=== PATIENT | male | born 1990 | race African-American/Black ===

== ENCOUNTER 2016-09-15 16:04 | Observation (INO) | payer OTHER ==
[2016-09-15] MEDS ORDERED: BABY ASPIRIN 81 MG CHEW PO ONE (16:27)
[2016-09-15] MEDS ORDERED: Sodium Chloride 0.9% 1000 ML 1,000 ML IV STA (16:27)
[2016-09-15] MEDS ORDERED: Ativan 2 MG/1 ML VIAL IV ONE ×2 (16:28→17:18)
[2016-09-15 16:35] LABS: BASOPHIL % 0.5 % (0.0-0.4); Eosinophil % 0.6 % (0.00-5.0); Granulocytes % 72.2 % (36.0-66.0); Lymphocytes % 18.8 % (24.0-44.0); Mean Cell Volume 84.1 fl (78-100); Mean Corpuscular Hemoglobin 27.9 pg (26-32); Mean Platelet Volume 11.8 fl (6-9.5); Monocytes % 7.9 % (0.0-12.0); Platelet Count 220 K/mm3 (150-450); Red Blood Count 5.48 M/mm3 (4.1-5.6); Red Cell Distribution Width 14.3 % (11.5-14.0); White Blood Count 8.5 K/mm3 (4.0-10.5)
[2016-09-15] MEDS ORDERED: Sodium Chloride 0.9% 1000 ML 1,000 ML ONE (16:37)
[2016-09-15] MEDS ORDERED: BABY ASPIRIN 81 MG CHEW ONE (16:37)
[2016-09-15] MEDS ORDERED: Ativan 2 MG/1 ML VIAL ONE ×2 (16:37→17:19)
[2016-09-15 16:51] LABS: ALKALINE PHOSPHATASE 63 U/L (46-116); ANION GAP 19.5 MEQ/L (5-15); BILIRUBIN,TOTAL 1.7 mg/dL (0.2-1.0); BLOOD UREA NITROGEN 17 mg/dL (9-20); CHLORIDE 99 mEq/L (98-107); Glucose 88 MG/DL (70-110); Potassium 3.7 mEq/L (3.5-5.1); SGOT/AST 18 U/L (15-37); SGPT/ALT 23 U/L (12-78); SODIUM 138 mEq/L (136-145); Total Protein 9.5 gm/dL (6.4-8.2)
--- NOTE | 2016-09-15 17:01 | ERPHSYRPT ---
- History of Present Illness Time Seen by Provider: 09/15/16 16:15 Historian: patient Patient Subjective Stated Complaint: pt states after smoking methampetamines last pm he began having chest pain and increased hert rate. pt states he has become sob at times. pt also c/o a headache. Triage Nursing Assessment: pt pink, warm, dry. lung sounds clear and equal. pt afebrile. Physician History: CC: chest pain Hx: 26 y/o man smoked meth last night. He then had chest pain and some headache. No hx of heart trouble in the past. Pain is constant. He was scared so came to ER. Not short of breath. No fever or chills. No cough. Timing/Duration: yesterday Location: substernal Severity of Pain-Max: moderate Severity of Pain-Current: moderate Nitro Today/Relief: no nitro taken today Aspirin Treatment Today: provided by ED Allergies/Adverse Reactions: No Known Drug Allergies Allergy (Unverified 09/15/16 16:16) Home Medications: No Reportable Medications [No Reported Medications] 09/15/16 [History] Hx Tetanus, Diphtheria Vaccination/Date Given: Yes (unknown) Hx Influenza Vaccination/Date Given: No Hx Pneumococcal Vaccination/Date Given: No Immunizations Up to Date: Yes - Review of Systems Constitutional: Malaise, No Fever, No Chills Eyes: No Symptoms Ears, Nose, & Throat: No Symptoms Respiratory: No Cough, No Dyspnea Cardiac: Chest Pain, No Edema, No Palpitations, No Syncope Abdominal/Gastrointestinal: No Abdominal Pain, No Nausea, No Vomiting, No Diarrhea Genitourinary Symptoms: No Symptoms Musculoskeletal: No Symptoms Skin: No Rash Neurological: Headache, No Dizziness, No Focal Weakness, No Parasthesia All Other Systems: Reviewed and Negative - Past Medical History Pertinent Past Medical History: No Neurological History: No Pertinent History ENT History: No Pertinent History Cardiac History: No Pertinent History Respiratory History: No Pertinent History - Past Surgical History Past Surgical History: No - Social History Smoking Status: Light tobacco smoker How long have you smoked: 10 Exposure to second hand smoke: No Drug Use: methamphetamines Patient Lives Alone: No - Nursing Vital Signs Temperature: 99.1 F Temperature Source: Oral Pulse Rate: 120 Respiratory Rate: 20 Blood Pressure: 159/103 Pain Intensity: 2 - Physical Exam General Appearance: alert Eye Exam: PERRL/EOMI Ears, Nose, Throat Exam: normal ENT inspection, moist mucous membranes Neck Exam: normal inspection, non-tender, supple Respiratory Exam: normal breath sounds, lungs clear Cardiovascular Exam: regular rate/rhythm, No murmur, No friction rub Gastrointestinal/Abdomen Exam: soft, No tenderness, No distention Extremity Exam: normal inspection, normal range of motion Neurologic Exam: alert, oriented x 3, cooperative, sensation nml, No motor deficits Skin Exam: warm, dry, No rash SpO2 Interpretation: normal SpO2: 98 Oxygen Delivery: Room Air - Course Nursing assessment & vital signs reviewed: Yes EKG Interpreted by Me: RATE (117), Sinus Rhythm, NORMAL AXIS, NORMAL INTERVALS ( QTc 441), Non-specific ST Changes - Radiology Exams cxr X-ray Interpretation: Reviewed by me, Negative Ordered Tests: Active Orders 24 hr Category Date Time Status Glass Belt Sander STAT Care 09/15/16 16:27 Active Clean Catch Urine Specimen STAT Care 09/15/16 17:44 Ordered EKG-ER Only STAT Care 09/15/16 16:27 Active IV Insertion STAT Care 09/15/16 16:27 Active Pulse Oximetry (ED) STAT Care 09/15/16 16:27 Active Regular Diet Diet 09/16/16 Breakfast Active CHEST 1 VIEW (PORTABLE) Stat Exams 09/15/16 16:27 Taken CBC W DIFF Stat Lab 09/15/16 16:30 Completed CMP Stat Lab 09/15/16 16:30 Completed TROPONIN Q3H Lab 09/15/16 16:32 Completed TROPONIN Q3H Lab 09/15/16 19:30 Ordered TROPONIN Q3H Lab 09/15/16 22:30 Ordered TROPONIN Q3H Lab 09/16/16 01:30 Ordered TROPONIN Q3H Lab 09/16/16 04:30 Ordered UA Stat Lab 09/15/16 17:45 Ordered Urine Triage Profile Stat Lab 09/15/16 17:45 Ordered Medication Summary Discontinued Medications Generic Name Dose Route Start Last Admin Trade Name Freq PRN Reason Stop Dose Admin Acetaminophen 650 mg 09/15/16 17:19 09/15/16 17:21 Tylenol 325 Mg PO 09/15/16 17:20 650 mg STAT ONE Administration Acetaminophen Confirm 09/15/16 17:20 Tylenol 325 Mg Administered 09/15/16 17:21 Dose 650 mg .ROUTE .STK-MED ONE Aspirin 162 mg 09/15/16 16:27 09/15/16 16:42 Baby Aspirin 81 Mg Chew PO 09/15/16 16:28 162 mg STAT ONE Administration Aspirin Confirm 09/15/16 16:37 Baby Aspirin 81 Mg Chew Administered 09/15/16 16:38 Dose 162 mg .ROUTE .STK-MED ONE Sodium Chloride 1,000 mls @ 999 mls/hr 09/15/16 16:27 09/15/16 16:42 Sodium Chloride 0.9% 1000 Ml IV 09/15/16 17:27 999 mls/hr .Q1H1M STA Administration Sodium Chloride Confirm 09/15/16 16:37 Sodium Chloride 0.9% 1000 Ml Administered 09/15/16 16:38 Dose 1,000 mls @ ud .ROUTE .STK-MED ONE Lorazepam 1 mg 09/15/16 16:28 09/15/16 16:43 Ativan 2 Mg/1 Ml Vial IV 09/15/16 16:29 1 mg STAT ONE Administration Lorazepam Confirm 09/15/16 16:37 Ativan 2 Mg/1 Ml Vial Administered 09/15/16 16:38 Dose 2 mg .ROUTE .STK-MED ONE Lorazepam 1 mg 09/15/16 17:18 09/15/16 17:21 Ativan 2 Mg/1 Ml Vial IV 09/15/16 17:19 1 mg STAT ONE Administration Lorazepam Confirm 09/15/16 17:19 Ativan 2 Mg/1 Ml Vial Administered 09/15/16 17:20 Dose 2 mg .ROUTE .STK-MED ONE Lab/Rad Data: Laboratory Result Diagrams 09/15/16 16:30 09/15/16 16:30 Laboratory Results 09/15/16 09/15/16 09/15/16 Range/Units 16:32 16:30 16:30 WBC 8.5 (4.0-10.5) K/mm3 RBC 5.48 (4.1-5.6) M/mm3 Hgb 15.3 (12.5-18.0) gm/dl Hct 46.1 (42-50) % MCV 84.1 (78-100) fl MCH 27.9 (26-32) pg MCHC 33.2 (32-36) g/dl RDW 14.3 H (11.5-14.0) % Plt Count 220 (150-450) K/mm3 MPV 11.8 H (6-9.5) fl Gran % 72.2 H (36.0-66.0) % Lymphocytes % 18.8 L (24.0-44.0) % Monocytes % 7.9 (0.0-12.0) % Eosinophils % 0.6 (0.00-5.0) % Basophils % 0.5 (0.0-0.4) % Basophils # 0.04 (0-0.4) Sodium 138 (136-145) mEq/L Potassium 3.7 (3.5-5.1) mEq/L Chloride 99 (98-107) mEq/L Carbon Dioxide 23.0 (21-32) mEq/L Anion Gap 19.5 H (5-15) MEQ/L BUN 17 (9-20) mg/dL Creatinine 1.01 (0.55-1.30) mg/dl Estimated GFR > 60 ML/MIN Glucose 88 (70-110) MG/DL Calcium 10.4 H (8.5-10.1) mg/dL Total Bilirubin 1.7 H (0.2-1.0) mg/dL AST 18 (15-37) U/L ALT 23 (12-78) U/L Alkaline Phosphatase 63 (46-116) U/L Troponin I 0.050 (0.000-0.056) ng/ml Serum Total Protein 9.5 H (6.4-8.2) gm/dL Albumin 5.0 (3.4-5.0) g/dL - Progress Progress Note: 09/15/16 17:45 Chest pain has improved with ativan. Troponin upper normal and he is still tachycardic. Paged Dr Reid for Jd for observation (oc). Will see patient in: hospital (observation) Counseled pt/family regarding: lab results, diagnosis, need for follow-up, rad results - Departure Time of Disposition: 17:53 Departure Disposition: Observation Clinical Impression: Chest pain, rule out acute myocardial infarction, Methamphetamine abuse Condition: Fair Critical Care Time: No Referrals: DOCTOR,NO FAMILY [Primary Care Provider] -
[2016-09-15] MEDS ORDERED: TYLENOL 325 MG PO ONE (17:19)
[2016-09-15] MEDS ORDERED: TYLENOL 325 MG ONE (17:20)
[2016-09-15 18:03] LABS: COMPLETE URINE MICROSCOPIC? NO; Collection Type CLEAN CATCH; Ph 5.5 (5-6)
[2016-09-15] MEDS ORDERED: MILK OF MAGNESIA 30 ML PO PRN (18:33)
[2016-09-15] MEDS ORDERED: Zofran 4 MG/2 ML VIAL IV PRN (18:33)
[2016-09-15] MEDS ORDERED: Senokot-S Tablet PO PRN (18:33)
[2016-09-15] MEDS ORDERED: TYLENOL 325 MG PO PRN (18:33)
[2016-09-15] MEDS ORDERED: MAALOX ES 30 ML UNIT DOSE PO PRN (18:33)
[2016-09-15] MEDS: Dextrose 5%-Lr IV Solution 1000 ML 1,000 ML IV SCH (19:49)
--- NOTE | 2016-09-15 20:33 | XRAY ---
Indication: Chest pain. Comparison: February 17, 2009 Portable chest again demonstrates normal heart, lungs, and bony thorax.
[2016-09-16] MEDS: Dextrose 5%-Lr IV Solution 1000 ML 1,000 ML IV SCH ×2 (02:54→08:38)
[2016-09-16] MEDS ORDERED: BABY ASPIRIN 81 MG CHEW PO SCH (10:00)
[2016-09-16] MEDS ORDERED: Ecotrin 325 MG PO SCH (10:00)
--- NOTE | 2016-09-16 14:22 | HP ---
HISTORY OF PRESENT ILLNESS: History has been gathered from review of patient's chart and discussion with patient. Mr. Molina is a 26 y/o male with reportedly no past medical history except illicit drug use. He presented to Emergency Room yesterday with substernal chest pain, increased heart rate, headache, and dizziness. Symptoms have started reportedly after he had smoked methamphetamine the night before. Upon initial evaluation in Emergency Room, he was noted to have BP of 159/103, heart rate of 120, respiratory rate 20, temperature 99.1. He was treated with Tylenol 650 mg PO X 1, Tylenol 325 mg PO X 1, aspirin 162 mg PO X 1, Ativan 1 mg IV X 1, Ativan 2 mg IV X 1. Subsequently, he was admitted to medical floor for further monitoring and management. Prior to admission, patient's chest pain had improved with Ativan. Since admission, his course has been essentially, more or less, unremarkable. At the time of this evaluation, he is alert, awake, and comfortable. States his chest pain has nearly resolved. Complains of occasional dizziness when he tries to stand up. Denies any other complaints. PAST MEDICAL HISTORY: As noted above. Patient denies having any prior medical problems. Also, denies any prior history of any chest pain. PAST SURGICAL HISTORY: Noncontributory. FAMILY HISTORY: Noncontributory to current admission. SOCIAL HISTORY: Patient is an active smoker. Has smoked for 10 years. Also, uses methamphetamines. ALLERGIES: NKDA. CURRENT MEDICATIONS: Patient is on no home medications. REVIEW OF SYSTEMS: Complains of occasional headache and dizziness. History of chest pain. Denies increased shortness of breath. Denies cough. Denies fever. Complains of mild abdominal discomfort (states he ate too much for lunch a short while back). Denies nausea or vomiting. Denies constipation or diarrhea. Denies urinary complaints. PHYSICAL EXAMINATION: Young male lying comfortably in bed. Not in acute distress. VITAL SIGNS: BP 102/54, heart rate 84, respiratory rate 18, temperature 98.3, O2 saturations 97% on room air. HEENT: Normocephalic. No pallor or icterus noted. NECK: No JVD present. CVS: S1 and S2 present. RESPIRATORY: Breath sounds bilaterally diminished and clear to auscultation. ABDOMEN: Soft, nontender. NEURO: He is alert and oriented X 3. Evaluation of motor strength in bilateral upper and lower extremities reveals grossly intact motor strength. EXTREMITIES: Reveals no edema on bilateral lower extremities. LABORATORY DATA: Labs from yesterday showed unremarkable CBC. CMP was notable for total bilirubin of 1.7. Troponin has been 0.050, 0.052, 0.050, 0.047, and 0.045. Lipid profile is essentially unremarkable except HDL of 75. UA was essentially negative. Urine tox is positive for amphetamines and marijuana. Chest x-ray from 09/15/16 shows normal study. Initial EKG showed normal sinus rhythm at 117 beats/minute, QTC 440, nonspecific ST-T changes. A follow-up EKG showed sinus rhythm at 86 beats/minute, QTC interval of 433 milliseconds, nonspecific ST-T changes, ST segment elevation in lead 3. ASSESSMENT: 26 y/o male with impression: 1. CHEST PAIN. 2. ILLICIT DRUG USE (MARIJUANA/AMPHETAMINES, PER URINE TOX). 3. ELEVATED BP NOW RESOLVED. 4. ABNORMAL LIVER FUNCTION TESTS. PLAN: 1. Patient was admitted for further monitoring and management. Since admission, his elevated BP/tachycardia resolved after treatment Ativan. He remains hemodynamically stable. Troponins have remained negative so far. EKG has revealed nonspecific ST-T changes. Will obtain a follow-up EKG. Also, will obtain orthostatic BP readings. 2. Patient is agreeable for psychiatry evaluation. Will obtain telemental health consultation. 3. Will schedule stress test as an outpatient. Will start patient on baby aspirin. 4. Likely discharge home later today if work-up is negative and clinically improves. 5. Will obtain hepatitis profile. I have advised patient to obtain PCP [facility] and follow-up in 1 week. Compliance with diet and medications was stressed. He is otherwise to follow-up for outpatient testing as scheduled. Complete cessation of smoking, alcohol intake, and illicit drug use was stressed. I have advised patient to return to the Emergency Room [facility] if any new signs and symptoms or reappearance of previous signs and symptoms are noted. The patient's clinical condition, work-up results, and plan of management were discussed with him. He seems to be in understanding and agreement.
[2016-09-16 15:39] VITALS: BP 142/63; PULSE 89; O2SAT 95
[2016-09-16] MEDS ORDERED: FLUZONE QUAD 2016-2017 SYRINGE 36MO-64YO IM ONE (16:30)
[2016-09-16] MEDS ORDERED: PNEUMOVAX 23 IM ONE (16:30)
[2016-09-17 06:58] LABS: HEPATITIS B VIRUS CORE TOT AB Non-Reactive (Non-Reactive)
[2016-09-17] MEDS ORDERED: ECOTRIN 81 MG PO SCH (10:00)
--- NOTE | 2016-09-17 10:23 | ECHO ---
Transthoracic echocardiographic examination and color Doppler was done on 09/16/2016. INDICATION: Chest pain. IMPRESSION: 1) NO REGIONAL WALL MOTION ABNORMALITY. ESTIMATED GLOBAL LEFT VENTRICULAR EJECTION FRACTION AROUND 60%. 2) TRACE TRICUSPID REGURGITATION. RIGHT VENTRICULAR SYSTOLIC PRESSURE OF 28 MM OF MERCURY. The left ventricle is visualized and demonstrated adequate motion of all the segments. Estimated global left ventricular ejection fraction around 60%. The left ventricular thickness is normal. The mitral valve is seen and this opens adequately. No significant mitral regurgitation is seen. Left atrium is normal. The aortic valve opens adequately. Right side chambers are normal. There is trace tricuspid regurgitation. Right ventricular systolic pressure of 28 mm of Mercury.
--- NOTE | 2016-09-17 11:01 | DS ---
DISCHARGE DIAGNOSES: 1) CHEST PAIN, RESOLVED. 2) ILLICIT DRUG USE (MARIJUANA/AMPHETAMINE PER URINE TOX). 3) ELEVATED BLOOD PRESSURE, RESOLVED. 4) ABNORMAL LIVER FUNCTION TEST. HOSPITAL COURSE: Donato Molina is a 26 year-old male with past medical history of illicit drug use. He was admitted on 09/15/2016 with reported chest pain, headache, dizziness which had started after he had smoked methamphetamine the night before. Upon presentation he was noted to be hypertensive, tachycardic. Please refer to H&P for details. Lab work up was essentially notable for bilirubin 1.7. Troponins have remained negative. Initial EKG showed tachycardia, nonspecific ST-T changes. Follow up EKG showed sinus rhythm, nonspecific ST-T changes and elevation in lead III. Follow up EKG showed sinus rhythm, no acute changes per preliminary report. Urine tox was positive for amphetamines and marijuana. During his further course he underwent additional work up including 2D echo which showed no regional wall motion abnormality, ejection fraction 60%, trace tricuspid regurgitation, right ventricular systolic pressure of 28 mm of Mercury. His chest pain had resolved. He was placed on daily aspirin and stress test as outpatient was scheduled. In the meantime patient and family were agreeable with evaluation by psychiatry for his substance abuse problem. The patient was evaluated by [facility] via telemental exam and was accepted for admission. The patient was transferred to their facility yesterday evening in stable condition. Please refer to discharge medication list from 09/16/2016 for details of medications on discharge. I have advised the patient that once he leaves he needs to find himself a primary care physician. Also, complete cessation of smoking, alcohol intake and illicit drug use was stressed. The patient's clinical condition, work-up results and plan of management as well as transfer were discussed with patient and family. They seem to be in understanding and agreement of the plan. Discussed with patient's nurse. Please refer to the patient's chart, labs, diagnostic work up results and consult note for details.
== END 2016-09-16 19:55 ==
LOC: ED 16:04 → MED SURG 18:32
PROVIDERS: ADMIT General Practice; ATTEND General Practice
DX: R07.9 Chest pain, unspecified (principal); F12.10 Cannabis abuse, uncomplicated; F15.10 Other stimulant abuse, uncomplicated; R03.0 Elevated blood-pressure reading, without diagnosis of hypertension; R79.89 Other specified abnormal findings of blood chemistry
CPT/HCPCS: 36000; 36415; 71010; 80053; 80061; 80074; 80307; 81002; 83721; 84484; 85025; 85379; 90686; 90732; 93005; 93041; 93268; 93306; 96360; 96374; 96376; 99284; G0008; G0378; J2060; Q3014

== ENCOUNTER 2017-03-21 18:49 | Emergency (ER) | payer OTHER, SELFPAY ==
--- NOTE | 2017-03-21 19:36 | ERPHSYRPT ---
- History of Present Illness Time Seen by Provider: 03/21/17 19:10 Source: patient Exam Limitations: no limitations Patient Subjective Stated Complaint: PT STATES THAT HE NEEDS MEDICAL CLEARANCE TO BE ADMITTED TO [facility]-STATES THAT HE IS AN IV DRUG ABUSER WITH METH ET ABUSES XAXNAX-REPORTS LAST TIME HE USED WAS YESTERDAY-STATES THAT HE HAD THOUGHTS OF JUMPING INTO TRAFFIC LAST NIGHT TO HARM HIMSELF-DENIES PAIN-DENIES SOB-DENIES COUGH Triage Nursing Assessment: PT PINK WARM ET [id number] QUESTIONS CORRECTLY-RESP EASY ET NONLABORED-PT REFUSES TO GET UNDRESSED FOR STAFF-STAFF EXPLAINED THE SAFETY REASONS ET PT STATED HE DIDN'T HAVE ANYTHING ON HIM ET WASN 'T GOING TO DO IT Physician History: REPORTEDLY PT HAD THOUGHTS OF SELF HARM YESTERDAY WHERE HE WOULD JUMP INTO TRAFFIC. PT LAST USED IV METH 2 DAYS AGO. PT HAS USED METH INTERMITTENTLY FOR THE PAST 10 YEARS BUT STATES ONLY ONCE IV. PT WAS IN [facility] IN THE BEGINNING OF THIS YEAR FOR 2 DAYS. PT DENIES CHEST PAIN, FEVER, SHORTNESS OF AIR , VOMITING. Allergies/Adverse Reactions: No Known Drug Allergies Allergy (Verified 03/21/17 19:02) Home Medications: No Home Meds 1 ea MC UD 03/21/17 [History] Hx Tetanus, Diphtheria Vaccination/Date Given: No Hx Influenza Vaccination/Date Given: No Hx Pneumococcal Vaccination/Date Given: No Immunizations Up to Date: Yes - Review of Systems Psychological: Drug Abuse, Suicidal Ideations All Other Systems: Reviewed and Negative - Past Medical History Pertinent Past Medical History: No Neurological History: No Pertinent History ENT History: No Pertinent History Cardiac History: No Pertinent History Respiratory History: No Pertinent History Musculoskeletal History: No Pertinent History GI Medical History: No Pertinent History History: No Pertinent History Psycho-Social History: No Pertinent History Male Reproductive Disorders: No Pertinent History - Past Surgical History Past Surgical History: No Neuro Surgical History: No Pertinent History Cardiac: No Pertinent History Respiratory: No Pertinent History Gastrointestinal: No Pertinent History Genitourinary: No Pertinent History Musculoskeletal: No Pertinent History Male Surgical History: No Pertinent History Other Surgical History: information recalled from ER. patient too drowsy to answer questions. patient received ativan in ER at 1643 and 1721. - Social History Smoking Status: Current every day smoker How long have you smoked: YRS Exposure to second hand smoke: No Drug Use: methamphetamines, narcotics Patient Lives Alone: No - Nursing Vital Signs Nursing Vital Signs: Initial Vital Signs Temperature 97.8 F 03/21/17 18:54 Pulse Rate 87 03/21/17 18:54 Respiratory Rate 20 03/21/17 18:54 Blood Pressure 137/82 03/21/17 18:54 O2 Sat by Pulse Oximetry 98 03/21/17 18:54 Pain Scale Pain Intensity 0 - Physical Exam General Appearance: alert Eye Exam: PERRL/EOMI Ears, Nose, Throat Exam: TMs normal, pharynx normal, moist mucous membranes Neck Exam: normal inspection Respiratory Exam: lungs clear Cardiovascular Exam: normal heart sounds Gastrointestinal/Abdomen Exam: soft, normal bowel sounds Back Exam: normal range of motion Extremity Exam: normal range of motion, No pedal edema Neurologic Exam: alert, cooperative SpO2 Interpretation: normal SpO2: 98 Oxygen Delivery: Room Air - Course Nursing assessment & vital signs reviewed: Yes Ordered Tests: Active Orders 24 hr Category Date Time Status tele-mental [Psychiatric Evaluation] STAT Care 03/21/17 20:27 Active ACETAMINOPHEN Stat Lab 03/21/17 19:49 Completed CBC W DIFF Stat Lab 03/21/17 19:49 Completed CMP Stat Lab 03/21/17 19:49 Completed ETHYL ALCOHOL Stat Lab 03/21/17 19:49 Completed SALICYLATE Stat Lab 03/21/17 19:49 Completed UA W/RFX UR CULTURE Stat Lab 03/21/17 19:28 Completed Urine Triage Profile Stat Lab 03/21/17 19:28 Completed Lab/Rad Data: Laboratory Result Diagrams 03/21/17 19:49 03/21/17 19:49 Laboratory Results 03/21/17 03/21/17 03/21/17 Range/Units 19:49 19:49 19:28 WBC 6.6 (4.0-10.5) K/mm3 RBC 4.71 (4.1-5.6) M/mm3 Hgb 13.3 (12.5-18.0) gm/dl Hct 40.9 L (42-50) % MCV 86.8 (78-100) fl MCH 28.2 (26-32) pg MCHC 32.5 (32-36) g/dl RDW 14.0 (11.5-14.0) % Plt Count 165 (150-450) K/mm3 MPV 11.6 H (6-9.5) fl Gran % 68.4 H (36.0-66.0) % Lymphocytes % 21.2 L (24.0-44.0) % Monocytes % 7.9 (0.0-12.0) % Eosinophils % 2.0 (0.00-5.0) % Basophils % 0.5 (0.0-0.4) % Basophils # 0.03 (0-0.4) Sodium 138 (136-145) mEq/L Potassium 4.6 (3.5-5.1) mEq/L Chloride 101 (98-107) mEq/L Carbon Dioxide 27.9 (21-32) mEq/L Anion Gap 14.1 (5-15) MEQ/L BUN 24 H (9-20) mg/dL Creatinine 1.14 (0.55-1.30) mg/dl Estimated GFR > 60 ML/MIN Glucose 109 (70-110) MG/DL Calcium 10.0 (8.5-10.1) mg/dL Total Bilirubin 1.20 H (0.2-1.0) mg/dL AST 33 (15-37) U/L ALT 29 (12-78) U/L Alkaline Phosphatase 54 (46-116) U/L Serum Total Protein 8.4 H (6.4-8.2) gm/dL Albumin 4.4 (3.4-5.0) g/dL Ur Collection Type Urine Color (YELLOW) Urine Appearance (CLEAR) Urine pH (5-6) Ur Specific [place] (1.005-1.025) Urine Protein (Negative) Urine Ketones (NEGATIVE) Urine Blood (0-5) Brian/ul Urine Nitrite (NEGATIVE) Urine Bilirubin (NEGATIVE) Urine Urobilinogen (0-1) mg/dL Ur Leukocyte Esterase (NEGATIVE) Urine Glucose (NEGATIVE) mg/dL Salicylates < 2.8 L (2.8-20.0) mg/dl Urine Opiates Level NEG. (NEGATIVE) Ur Methadone NEG. (NEGATIVE) Acetaminophen < 2.0 L (10-30) ug/ml Urine Barbiturates NEG. (NEGATIVE) Ur Phencyclidine (PCP) NEG. (NEGATIVE) Urine Amphetamine POS. (NEGATIVE) U Benzodiazepine Level POS. (NEGATIVE) Urine Cocaine NEG. (NEGATIVE) Urine Marijuana (THC) POS. (NEGATIVE) Ethyl Alcohol < 0.010 (0.00-0.01) % Specimen Received 03/21/17 Range/Units 19:28 WBC (4.0-10.5) K/mm3 RBC (4.1-5.6) M/mm3 Hgb (12.5-18.0) gm/dl Hct (42-50) % MCV (78-100) fl MCH (26-32) pg MCHC (32-36) g/dl RDW (11.5-14.0) % Plt Count (150-450) K/mm3 MPV (6-9.5) fl Gran % (36.0-66.0) % Lymphocytes % (24.0-44.0) % Monocytes % (0.0-12.0) % Eosinophils % (0.00-5.0) % Basophils % (0.0-0.4) % Basophils # (0-0.4) Sodium (136-145) mEq/L Potassium (3.5-5.1) mEq/L Chloride (98-107) mEq/L Carbon Dioxide (21-32) mEq/L Anion Gap (5-15) MEQ/L BUN (9-20) mg/dL Creatinine (0.55-1.30) mg/dl Estimated GFR ML/MIN Glucose (70-110) MG/DL Calcium (8.5-10.1) mg/dL Total Bilirubin (0.2-1.0) mg/dL AST (15-37) U/L ALT (12-78) U/L Alkaline Phosphatase (46-116) U/L Serum Total Protein (6.4-8.2) gm/dL Albumin (3.4-5.0) g/dL Ur Collection Type CCMS Urine Color YELLOW (YELLOW) Urine Appearance CLEAR (CLEAR) Urine pH 5.0 (5-6) Ur Specific [place] 1.025 (1.005-1.025) Urine Protein NEGATIVE (Negative) Urine Ketones NEGATIVE (NEGATIVE) Urine Blood NEGATIVE (0-5) Brian/ul Urine Nitrite NEGATIVE (NEGATIVE) Urine Bilirubin NEGATIVE (NEGATIVE) Urine Urobilinogen NORMAL (0-1) mg/dL Ur Leukocyte Esterase NEGATIVE (NEGATIVE) Urine Glucose NEGATIVE (NEGATIVE) mg/dL Salicylates (2.8-20.0) mg/dl Urine Opiates Level (NEGATIVE) Ur Methadone (NEGATIVE) Acetaminophen (10-30) ug/ml Urine Barbiturates (NEGATIVE) Ur Phencyclidine (PCP) (NEGATIVE) Urine Amphetamine (NEGATIVE) U Benzodiazepine Level (NEGATIVE) Urine Cocaine (NEGATIVE) Urine Marijuana (THC) (NEGATIVE) Ethyl Alcohol (0.00-0.01) % Specimen Received [id number] - Progress Discussed with : Other (DR MILLER(PSYCHIATRIST)([id number]) ACCEPTED PT FOR TRANSFER TO [facility] A DIRECT ADMISSION.) - Departure Time of Disposition: 22:27 Departure Disposition: Transfer ([facility]) Clinical Impression: SUICIDAL IDEATION, AMPHETAMINE, XANAX & THC USE Condition: Fair Critical Care Time: No
[2017-03-21 19:54] LABS: BASOPHIL % 0.5 % (0.0-0.4); Granulocytes % 68.4 % (36.0-66.0); Lymphocytes % 21.2 % (24.0-44.0); Mean Cell Volume 86.8 fl (78-100); Mean Corpuscular Hemoglobin 28.2 pg (26-32); Mean Platelet Volume 11.6 fl (6-9.5); Monocytes % 7.9 % (0.0-12.0); Platelet Count 165 K/mm3 (150-450); Red Blood Count 4.71 M/mm3 (4.1-5.6); White Blood Count 6.6 K/mm3 (4.0-10.5)
[2017-03-21 20:15] LABS: ALBUMIN 4.4 g/dL (3.4-5.0); ALKALINE PHOSPHATASE 54 U/L (46-116); ANION GAP 14.1 MEQ/L (5-15); BLOOD UREA NITROGEN 24 mg/dL (9-20); CHLORIDE 101 mEq/L (98-107); Carbon Dioxide 27.9 mEq/L (21-32); Glucose 109 MG/DL (70-110); Potassium 4.6 mEq/L (3.5-5.1); SGOT/AST 33 U/L (15-37); SGPT/ALT 29 U/L (12-78); SODIUM 138 mEq/L (136-145); Total Protein 8.4 gm/dL (6.4-8.2)
[2017-03-21 20:16] LABS: ACETAMINOPHEN < 2.0 ug/ml (10-30); ETHYL ALCOHOL < 0.010 % (0.00-0.01)
[2017-03-21 20:31] LABS: Collection Type CCMS; Glucose NEGATIVE (NEGATIVE); Leukocyte Esterase NEGATIVE (NEGATIVE)
[2017-03-21 20:32] LABS: ADD URINE CULTURE? NO (NO); Bilirubin NEGATIVE (NEGATIVE); Blood NEGATIVE Ery/ul (0-5); COMPLETE URINE MICROSCOPIC? NO
[2017-03-21 22:28] VITALS: O2SAT 98
[2017-03-21 23:02] VITALS: BP 126/72; PULSE 82
== END 2017-03-21 23:55 | disposition short-term general hospital (02) ==
LOC: ED 18:49
DX: R45.851 Suicidal ideations (principal); F15.90 Other stimulant use, unspecified, uncomplicated; F12.90 Cannabis use, unspecified, uncomplicated
CPT/HCPCS: 36415; 80053; 80307; 81002; 85025; 90791; 99285; G0481; Q3014

== ENCOUNTER 2017-09-26 08:37 | Observation (INO) | payer OTHER ==
[2017-09-26] MEDS ORDERED: Geodon 20 MG INJ IM ONE ×2 (08:46→08:50)
[2017-09-26] MEDS ORDERED: Sodium Chloride 0.9% 1000 ML 1,000 ML IV STA (08:46)
[2017-09-26] MEDS ORDERED: THIAMINE 200 MG/2 ML IM ONE (08:47)
--- NOTE | 2017-09-26 09:11 | ERPHSYRPT ---
- History of Present Illness Time Seen by Provider: 09/26/17 08:42 Source: patient, family (mother) Physician History: CC: wants to hurt himself Hx: 27 y/o patient with no local doctor. Has been seen by [facility] and [facility]. He has hx of drug use and alcohol abuse. Was doing better after release from [employer] a few months ago. He texted his mother this AM staitng "I don't want to hurt anybody but don't know what to do." Mother states he told her the cuts were going to get deeper. He told mother he was at grandparents but he was found at his nieces. No one was injured. He states he wants to kill himself and would do it like his boy- shoot himself. ILL: Alcohol and drug abuse Surg: None ALL: None Meds: Depression med- reports last dose 2 days ago. Mother was not aware he was on meds. 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 Smoker of tobacco and THC. Timing/Duration: today Severity of Symptoms-Max: severe Severity of Symptoms-Current: severe Allergies/Adverse Reactions: No Known Drug Allergies Allergy (Verified 09/26/17 09:26) Home Medications: No Home Meds [No Home Meds] 1 ea UD 03/21/17 [History] Hx Tetanus, Diphtheria Vaccination/Date Given: No Hx Influenza Vaccination/Date Given: No Hx Pneumococcal Vaccination/Date Given: No - Past Medical History Pertinent Past Medical History: No Neurological History: No Pertinent History ENT History: No Pertinent History Cardiac History: No Pertinent History Respiratory History: No Pertinent History Musculoskeletal History: No Pertinent History GI Medical History: No Pertinent History History: No Pertinent History Psycho-Social History: No Pertinent History Male Reproductive Disorders: No Pertinent History - Past Surgical History Past Surgical History: No Neuro Surgical History: No Pertinent History Cardiac: No Pertinent History Respiratory: No Pertinent History Gastrointestinal: No Pertinent History Genitourinary: No Pertinent History Musculoskeletal: No Pertinent History Male Surgical History: No Pertinent History - Social History Smoking Status: Current every day smoker How long have you smoked: YRS Exposure to second hand smoke: No Drug Use: methamphetamines, narcotics Patient Lives 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) - Review of Systems Constitutional: No Fever Cardiac: No Chest Pain Abdominal/Gastrointestinal: No Abdominal Pain, No Vomiting Musculoskeletal: No Back Pain All Other Systems: Unable due to condition (agitated) - Nursing Vital Signs Nursing Vital Signs: Initial Vital Signs Temperature 98.4 F 09/26/17 09:00 Pulse Rate 111 H 09/26/17 09:00 Respiratory Rate 22 09/26/17 09:00 Blood Pressure 139/89 09/26/17 09:00 O2 Sat by Pulse Oximetry 98 09/26/17 09:00 Pain Scale Pain Intensity 0 - Physical Exam General Appearance: alert, other (agitated, flight of ideas, appears intoxicated without capacity to understand situation) Eyes, Ears, Nose, Throat Exam: moist mucous membranes Neck Exam: normal inspection, non-tender, supple Respiratory Exam: normal breath sounds, lungs clear Cardiovascular Exam: regular rate/rhythm, No murmur, No pulse deficit (2+ femoral pulses) Gastrointestinal/Abdominal Exam: soft, No tenderness, No distention Neurological Exam: alert, 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 tested, agitated, motor strength ( normal and nonfocal) Behavior/Eye Contact/Speech: threatening eye contact, increased rate of speech, belligerent, agitated, alert & uncooperative, intoxicated appearance Skin Exam: warm, dry, No rash - Course Nursing assessment & vital signs reviewed: Yes EKG Interpreted by Me: RATE (103), Sinus Tach, NORMAL AXIS, NORMAL INTERVALS ( QTc 430), NORMAL QRS, NORMAL ST-T Ordered Tests: Active Orders 24 hr Category Date Time Status Business Improvement Manager STAT Care 09/26/17 08:46 Active Clean Catch Urine Specimen STAT Care 09/26/17 08:46 Active EKG-ER Only STAT Care 09/26/17 08:46 Active IV Insertion STAT Care 09/26/17 08:46 Active Regular Diet Diet 09/26/17 Breakfast Active ACETAMINOPHEN Stat Lab 09/26/17 09:20 Completed CBC W DIFF Stat Lab 09/26/17 09:20 Completed CMP Stat Lab 09/26/17 09:20 Completed ETHYL ALCOHOL Stat Lab 09/26/17 09:20 Completed SALICYLATE Stat Lab 09/26/17 09:20 Completed UA W/RFX UR CULTURE Stat Lab 09/26/17 09:15 Completed Urine Triage Profile Stat Lab 09/26/17 09:15 Completed Medication Summary Discontinued Medications Generic Name Dose Route Start Last Admin Trade Name Freq PRN Reason Stop Dose Admin Sodium Chloride 1,000 mls @ 999 mls/hr 09/26/17 08:46 09/26/17 09:38 Sodium Chloride 0.9% 1000 Ml IV 09/26/17 09:46 999 mls/hr .Q1H1M STA Administration Sodium Chloride Confirm 09/26/17 09:31 Sodium Chloride 0.9% 1000 Ml Administered 09/26/17 09:32 Dose 1,000 mls @ ud .ROUTE .STK-MED ONE Lorazepam 1 mg 09/26/17 09:26 Ativan 2 Mg/1 Ml Vial IV 09/26/17 09:27 STAT ONE Thiamine HCl 100 mg 09/26/17 08:47 Thiamine 200 Mg/2 Ml IM 09/26/17 08:48 STAT ONE Ziprasidone 10 mg 09/26/17 08:46 09/26/17 09:00 Geodon 20 Mg Inj IM 09/26/17 08:47 10 mg STAT ONE Administration Ziprasidone Confirm 09/26/17 08:50 Geodon 20 Mg Inj Administered 09/26/17 08:51 Dose 20 mg IM .STK-MED ONE Lab/Rad Data: Laboratory Result Diagrams 09/26/17 09:20 09/26/17 09:20 Laboratory Results 09/26/17 09/26/17 09/26/17 Range/Units 09:20 09:20 09:15 WBC 5.7 (4.0-10.5) K/mm3 RBC 4.88 (4.1-5.6) M/mm3 Hgb 13.3 (12.5-18.0) gm/dl Hct 41.4 L (42-50) % MCV 84.8 (78-100) fl MCH 27.3 (26-32) pg MCHC 32.1 (32-36) g/dl RDW 15.0 H (11.5-14.0) % Plt Count 290 (150-450) K/mm3 MPV 11.1 H (6-9.5) fl Gran % 47.9 (36.0-66.0) % Lymphocytes % 40.1 (24.0-44.0) % Monocytes % 9.2 (0.0-12.0) % Eosinophils % 2.1 (0.00-5.0) % Basophils % 0.7 (0.0-0.4) % Basophils # 0.04 (0-0.4) Sodium 144 (136-145) mEq/L Potassium 3.7 (3.5-5.1) mEq/L Chloride 107 (98-107) mEq/L Carbon Dioxide 23.2 (21-32) mEq/L Anion Gap 17.8 H (5-15) MEQ/L BUN 12 (9-20) mg/dL Creatinine 1.03 (0.55-1.30) mg/dl Estimated GFR > 60 ML/MIN Glucose 97 (70-110) MG/DL Calcium 9.5 (8.5-10.1) mg/dL Total Bilirubin 0.40 (0.2-1.0) mg/dL AST 17 (15-37) U/L ALT 23 (12-78) U/L Alkaline Phosphatase 54 (46-116) U/L Serum Total Protein 8.8 H (6.4-8.2) gm/dL Albumin 4.5 (3.4-5.0) g/dL Ur Collection Type Urine Color (YELLOW) Urine Appearance (CLEAR) Urine pH (5-6) Ur Specific [place] (1.005-1.025) Urine Protein (Negative) Urine Ketones (NEGATIVE) Urine Blood (0-5) Brian/ul Urine Nitrite (NEGATIVE) Urine Bilirubin (NEGATIVE) Urine Urobilinogen (0-1) mg/dL Ur Leukocyte Esterase (NEGATIVE) Urine Culture Reflexed (NO) Urine Glucose (NEGATIVE) mg/dL Salicylates < 2.8 L (2.8-20.0) mg/dl Urine Opiates Level NEG. (NEGATIVE) Ur Methadone NEG. (NEGATIVE) Acetaminophen < 2.0 L (10-30) ug/ml Urine Barbiturates NEG. (NEGATIVE) Ur Phencyclidine (PCP) NEG. (NEGATIVE) Urine Amphetamine NEG. (NEGATIVE) U Benzodiazepine Level NEG. (NEGATIVE) Urine Cocaine NEG. (NEGATIVE) Urine Marijuana (THC) POS. (NEGATIVE) Ethyl Alcohol 0.333 H* (0.00-0.01) % Specimen Received 09/26/17 Range/Units 09:15 WBC (4.0-10.5) K/mm3 RBC (4.1-5.6) M/mm3 Hgb (12.5-18.0) gm/dl Hct (42-50) % MCV (78-100) fl MCH (26-32) pg MCHC (32-36) g/dl RDW (11.5-14.0) % Plt Count (150-450) K/mm3 MPV (6-9.5) fl Gran % (36.0-66.0) % Lymphocytes % (24.0-44.0) % Monocytes % (0.0-12.0) % Eosinophils % (0.00-5.0) % Basophils % (0.0-0.4) % Basophils # (0-0.4) Sodium (136-145) mEq/L Potassium (3.5-5.1) mEq/L Chloride (98-107) mEq/L Carbon Dioxide (21-32) mEq/L Anion Gap (5-15) MEQ/L BUN (9-20) mg/dL Creatinine (0.55-1.30) mg/dl Estimated GFR ML/MIN Glucose (70-110) MG/DL Calcium (8.5-10.1) mg/dL Total Bilirubin (0.2-1.0) mg/dL AST (15-37) U/L ALT (12-78) U/L Alkaline Phosphatase (46-116) U/L Serum Total Protein (6.4-8.2) gm/dL Albumin (3.4-5.0) g/dL Ur Collection Type CLEAN CATCH Urine Color LT.YELLOW (YELLOW) Urine Appearance CLEAR (CLEAR) Urine pH 5.0 (5-6) Ur Specific [place] 1.005 (1.005-1.025) Urine Protein NEGATIVE (Negative) Urine Ketones NEGATIVE (NEGATIVE) Urine Blood NEGATIVE (0-5) Brian/ul Urine Nitrite NEGATIVE (NEGATIVE) Urine Bilirubin NEGATIVE (NEGATIVE) Urine Urobilinogen NORMAL (0-1) mg/dL Ur Leukocyte Esterase NEGATIVE (NEGATIVE) Urine Culture Reflexed NO (NO) Urine Glucose NEGATIVE (NEGATIVE) mg/dL Salicylates (2.8-20.0) mg/dl Urine Opiates Level (NEGATIVE) Ur Methadone (NEGATIVE) Acetaminophen (10-30) ug/ml Urine Barbiturates (NEGATIVE) Ur Phencyclidine (PCP) (NEGATIVE) Urine Amphetamine (NEGATIVE) U Benzodiazepine Level (NEGATIVE) Urine Cocaine (NEGATIVE) Urine Marijuana (THC) (NEGATIVE) Ethyl Alcohol (0.00-0.01) % Specimen Received 09/26/17 0930 - Progress Progress Note: 09/26/17 09:14 Mother states he is in no condition to go home and she is worried about his safety. Will need to proceed with emergency fpc. Geodon given. Will check labs. Will consider [facility] consultation when stable. 09/26/17 10:36 Mother signed emergency fpc application. He is too intoxicated for HC consult at present. He now is sleeping after 10mg IM geodon. Ativan not given. HC intake notified. Called Dr Miles (oc) and will place in ICU observation until HC consult can be completed. Discussed with : Jd Will see patient in: hospital (observation) Counseled pt/family regarding: lab results, diagnosis, need for follow-up - Departure Time of Disposition: 10:38 Departure Disposition: Observation (ICU) Clinical Impression: Suicidal ideation, Polysubstance abuse, Alcohol intoxication Condition: Fair Critical Care Time: No
[2017-09-26] MEDS ORDERED: Ativan 2 MG/1 ML VIAL IV ONE (09:26)
[2017-09-26 09:28] LABS: BASOPHIL % 0.7 % (0.0-0.4); Basophil (Absolute #) 0.04 (0-0.4); Eosinophil % 2.1 % (0.00-5.0); Eosinophil (Absolute #) 0.12 (0-0.5); Granulocyte Absolute (ANC) 2.74 (1.4-6.9); Granulocytes % 47.9 % (36.0-66.0); Hematocrit 41.4 % (42-50); Hemoglobin 13.3 gm/dl (12.5-18.0); Lymphocytes % 40.1 % (24.0-44.0); Mean Cell Volume 84.8 fl (78-100); Mean Corpuscular Hemoglobin 27.3 pg (26-32); Mean Corpuscular Hgb Concent. 32.1 g/dl (32-36); Mean Platelet Volume 11.1 fl (6-9.5); Monocyte (Absolute #) 0.53 (0.0-1.3); Monocytes % 9.2 % (0.0-12.0); Platelet Count 290 K/mm3 (150-450); Red Blood Count 4.88 M/mm3 (4.1-5.6); White Blood Count 5.7 K/mm3 (4.0-10.5)
[2017-09-26] MEDS ORDERED: Sodium Chloride 0.9% 1000 ML 1,000 ML ONE (09:31)
[2017-09-26 09:34] LABS: Appearance CLEAR (CLEAR); Bilirubin NEGATIVE (NEGATIVE); Blood NEGATIVE Ery/ul (0-5); Glucose NEGATIVE (NEGATIVE); Ketones NEGATIVE (NEGATIVE); Leukocyte Esterase NEGATIVE (NEGATIVE); Nitrite NEGATIVE (NEGATIVE); Protein,Urine Dip NEGATIVE (Negative); Specific Gravity 1.005 (1.005-1.025); Urobilinogen NORMAL mg/dL (0-1)
[2017-09-26 09:59] LABS: Amphetamine,Urine NEG. (NEGATIVE); Barbiturate,Urine NEG. (NEGATIVE); Benzodiazepine,Urine NEG. (NEGATIVE); Cocaine,Urine NEG. (NEGATIVE); Methadone,Urine NEG. (NEGATIVE); Opiate,Urine NEG. (NEGATIVE); PCP,Urine NEG. (NEGATIVE); THC,Urine POS. (NEGATIVE)
[2017-09-26 10:21] LABS: ALBUMIN 4.5 g/dL (3.4-5.0); ALKALINE PHOSPHATASE 54 U/L (46-116); ANION GAP 17.8 MEQ/L (5-15); BLOOD UREA NITROGEN 12 mg/dL (9-20); CHLORIDE 107 mEq/L (98-107); Calcium 9.5 mg/dL (8.5-10.1); Carbon Dioxide 23.2 mEq/L (21-32); Creatinine 1 1.03 mg/dl (0.55-1.30); EST GLOMERULAR FILTRATION RATE > 60 ML/MIN; Glucose 97 MG/DL (70-110); Potassium 3.7 mEq/L (3.5-5.1); SALICYLATE < 2.8 mg/dl (2.8-20.0); SGOT/AST 17 U/L (15-37); SGPT/ALT 23 U/L (12-78); SODIUM 144 mEq/L (136-145); Total Protein 8.8 gm/dL (6.4-8.2)
[2017-09-26 10:23] LABS: ACETAMINOPHEN < 2.0 ug/ml (10-30); ETHYL ALCOHOL 0.333 % (0.00-0.01)
[2017-09-26] MEDS ORDERED: THIAMINE 200 MG/2 ML ONE (10:47)
[2017-09-26] MEDS ORDERED: Dextrose 5%-Lr IV Solution 1000 ML 1,000 ML IV SCH ×2 (11:30→12:29)
--- NOTE | 2017-09-26 14:21 | PCM.SSS ---
History of Present Illness - Chief Complaint Chief Complaint: suicidal ideation History of Present Illness: 27 y/o patient with no local doctor. Has been seen by [facility] and [facility]. He has hx of drug use and alcohol abuse. Was doing better after release from [employer] a few months ago. He texted his mother this AM staitng "I don't want to hurt anybody but don't know what to do." Mother states he told her the cuts were going to get deeper. He told mother he was at grandparents but he was found at his nieces. No one was injured. He states he wants to kill himself and would do it like his boy- shoot himself. - Review of Systems Constitutional: No Fever, No Chills Eyes: No Symptoms Ears, Nose, & Throat: No Symptoms Respiratory: No Cough, No Short Of Breath Cardiac: No Chest Pain, No Edema, No Syncope Abdominal/Gastrointestinal: No Abdominal Pain, No Nausea, No Vomiting, No Diarrhea Genitourinary Symptoms: No Dysuria Musculoskeletal: No Back Pain, No Neck Pain Skin: No Rash Neurological: No Dizziness, No Focal Weakness, No Sensory Changes Psychological: No Symptoms Endocrine: No Symptoms Hematologic/Lymphatic: No Symptoms Immunological/Allergic: No Symptoms Medications & Allergies Home Medications: Home Medication List No Home Meds [No Home Meds] 1 [facility] 03/21/17 [History Confirmed 09/26/17] Allergies/Adverse Reactions: Allergies Allergy/AdvReac Type Severity Reaction Status Date / Time No Known Drug Allergies Allergy Verified 09/26/17 12:41 - Past Medical History Past Medical History: No Neurological History: No Pertinent History ENT History: No Pertinent History Cardiac History: No Pertinent History Respiratory History: No Pertinent History Endocrine Medical History: No Pertinent History Musculoskelatal History: No Pertinent History GI Medical History: No Pertinent History History: No Pertinent History Pyscho-Social History: No Pertinent History Male Reproductive Disorders: No Pertinent History - Past Surgical History Past Surgical History: No Neuro Surgical History: No Pertinent History Cardiac History: No Pertinent History Respiratory Surgery: No Pertinent History GI Surgical History: No Pertinent History Genitourinary Surgical Hx: No Pertinent History Musculskeletal Surgical Hx: No Pertinent History Male Surgical History: No Pertinent History Other Surgical History: information recalled from ER. patient too drowsy to answer questions. patient received ativan in ER at 1643 and 1721. - Social History Smoking Status: Current every day smoker How long have you smoked: YRS Exposure to second hand smoke: No Alcohol: Occasionally Drug Use: methamphetamines, narcotics - Physical Exam Vital Signs: Vital Signs - 24 hr Temp Pulse Resp BP Pulse Ox 09/26/17 13:50 96 H 16 131/97 95 09/26/17 12:42 98.4 F 84 16 140/88 98 09/26/17 12:20 91 H 18 91/48 96 09/26/17 12:02 85 16 80/35 09/26/17 11:24 82 16 86/48 95 09/26/17 10:30 84 16 97/48 94 L 09/26/17 10:00 87 16 97/48 09/26/17 09:00 98.4 F 111 H 22 139/89 98 General Appearance: no apparent distress, alert Neurologic Exam: alert, oriented x 3, cooperative, normal mood/affect, nml cerebellar function, nml station & gait, sensation nml, No motor deficits Eye Exam: PERRL/EOMI, eyes nml inspection Ears, Nose, Throat Exam: normal ENT inspection, TMs normal, pharynx normal, moist mucous membranes Neck Exam: normal inspection, non-tender, supple, full range of motion Respiratory Exam: normal breath sounds, lungs clear, No respiratory distress Cardiovascular Exam: regular rate/rhythm, normal heart sounds, normal peripheral pulses Gastrointestinal/Abdomen Exam: soft, normal bowel sounds, No tenderness, No mass Back Exam: normal inspection, normal range of motion, No CVA tenderness, No vertebral tenderness Extremity Exam: normal inspection, normal range of motion, pelvis stable Skin Exam: normal color, warm, dry, No rash Lymphatic Exam: No adenopathy Results - Other Procedures and Tests Respiratory Therapy 09/26/17 13:13 Smoking Cessation Education ONCE Assessment/Plan (1) Alcohol intoxication Current Visit: Yes Status: Acute Qualifiers: Complication of substance-induced condition: with delirium Qualified Code(s ): F10.921 - Alcohol use, unspecified with intoxication delirium (2) Polysubstance abuse Current Visit: Yes Status: Acute Code(s): F19.10 - OTHER PSYCHOACTIVE SUBSTANCE ABUSE, UNCOMPLICATED (3) Suicidal ideation Current Visit: Yes Status: Acute Code(s): R45.851 - SUICIDAL IDEATIONS (4) Methamphetamine abuse Current Visit: No Status: Acute Code(s): F15.10 - OTHER STIMULANT ABUSE, UNCOMPLICATED Hospital Summary - Hospital Course Hospital Course: Chief Complaint Diagnosis suicidal ideation Allergies Allergy/AdvReac Type Severity Reaction Status Date / Time No Known Drug Allergies Allergy Verified 09/26/17 12:41 Vital Signs (Last 24 hours) Temp Pulse Resp BP Pulse Ox 09/26/17 13:50 96 H 16 131/97 95 09/26/17 12:42 98.4 F 84 16 140/88 98 09/26/17 12:20 91 H 18 91/48 96 09/26/17 12:02 85 16 80/35 09/26/17 11:24 82 16 86/48 95 09/26/17 10:30 84 16 97/48 94 L 09/26/17 10:00 87 16 97/48 09/26/17 09:00 98.4 F 111 H 22 139/89 98 Current Medications Generic Name Dose Route Start Last Admin Trade Name Freq PRN Reason Stop Dose Admin Dextrose/Lactated Ringer's 1,000 mls @ 100 mls/hr 09/26/17 12:29 Dextrose 5%-Lr Iv Solution 1000 Ml IV 10/26/17 12:28 .Q10H VICK Discontinued Medications Generic Name Dose Route Start Last Admin Trade Name Freq PRN Reason Stop Dose Admin Sodium Chloride 1,000 mls @ 999 mls/hr 09/26/17 08:46 09/26/17 09:38 Sodium Chloride 0.9% 1000 Ml IV 09/26/17 09:46 999 mls/hr .Q1H1M STA Administration Sodium Chloride Confirm 09/26/17 09:31 Sodium Chloride 0.9% 1000 Ml Administered 09/26/17 09:32 Dose 1,000 mls @ ud .ROUTE .STK-MED ONE Dextrose/Lactated Ringer's 1,000 mls @ 100 mls/hr 09/26/17 11:30 09/26/17 11: 28 Dextrose 5%-Lr Iv Solution 1000 Ml IV 10/26/17 11:29 100 mls/hr .Q10H VICK Administration Lorazepam 1 mg 09/26/17 09:26 09/26/17 10:00 Ativan 2 Mg/1 Ml Vial IV 09/26/17 09:27 Not Given STAT ONE Thiamine HCl 100 mg 09/26/17 08:47 09/26/17 10:48 Thiamine 200 Mg/2 Ml IM 09/26/17 08:48 100 mg STAT ONE Administration Thiamine HCl Confirm 09/26/17 10:47 Thiamine 200 Mg/2 Ml Administered 09/26/17 10:48 Dose 200 mg .ROUTE .STK-MED ONE Ziprasidone 10 mg 09/26/17 08:46 09/26/17 09:00 Geodon 20 Mg Inj IM 09/26/17 08:47 10 mg STAT ONE Administration Ziprasidone Confirm 09/26/17 08:50 Geodon 20 Mg Inj Administered 09/26/17 08:51 Dose 20 mg IM .STK-MED ONE Intake & Output (Last 24 hours) 09/24/17 09/25/17 09/26/17 09/27/17 11:59 11:59 11:59 11:59 Weight 80 kg 85.6 kg Laboratory Results (Last 24 hours) 09/26/17 09/26/17 09/26/17 09:20 09:20 09:15 WBC 5.7 RBC 4.88 Hgb 13.3 Hct 41.4 L MCV 84.8 MCH 27.3 MCHC 32.1 RDW 15.0 H Plt Count 290 MPV 11.1 H Gran % 47.9 Lymphocytes % 40.1 Monocytes % 9.2 Eosinophils % 2.1 Basophils % 0.7 Basophils # 0.04 Sodium 144 Potassium 3.7 Chloride 107 Carbon Dioxide 23.2 Anion Gap 17.8 H BUN 12 Creatinine 1.03 Estimated GFR > 60 Glucose 97 Calcium 9.5 Total Bilirubin 0.40 AST 17 ALT 23 Alkaline Phosphatase 54 Serum Total Protein 8.8 H Albumin 4.5 Ur Collection Type Urine Color Urine Appearance Urine pH Ur Specific [place] Urine Protein Urine Ketones Urine Blood Urine Nitrite Urine Bilirubin Urine Urobilinogen Ur Leukocyte Esterase Urine Culture Reflexed Urine Glucose Salicylates < 2.8 L Urine Opiates Level NEG. Ur Methadone NEG. Acetaminophen < 2.0 L Urine Barbiturates NEG. Ur Phencyclidine (PCP) NEG. Urine Amphetamine NEG. U Benzodiazepine Level NEG. Urine Cocaine NEG. Urine Marijuana (THC) POS. Ethyl Alcohol 0.333 H* Specimen Received 09/26/17 09:15 WBC RBC Hgb Hct MCV MCH MCHC RDW Plt Count MPV Gran % Lymphocytes % Monocytes % Eosinophils % Basophils % Basophils # Sodium Potassium Chloride Carbon Dioxide Anion Gap BUN Creatinine Estimated GFR Glucose Calcium Total Bilirubin AST ALT Alkaline Phosphatase Serum Total Protein Albumin Ur Collection Type CLEAN CATCH Urine Color LT.YELLOW Urine Appearance CLEAR Urine pH 5.0 Ur Specific [place] 1.005 Urine Protein NEGATIVE Urine Ketones NEGATIVE Urine Blood NEGATIVE Urine Nitrite NEGATIVE Urine Bilirubin NEGATIVE Urine Urobilinogen NORMAL Ur Leukocyte Esterase NEGATIVE Urine Culture Reflexed NO Urine Glucose NEGATIVE Salicylates Urine Opiates Level Ur Methadone Acetaminophen Urine Barbiturates Ur Phencyclidine (PCP) Urine Amphetamine U Benzodiazepine Level Urine Cocaine Urine Marijuana (THC) Ethyl Alcohol Specimen Received 09/26/17 0930 Orders (Last 24 hours) Category Date Time Status Up With Assistance ROUTINE Activity 09/26/17 12:29 Active Admission/Status Order ROUTINE Care 09/26/17 12:29 Active Call Admit Doctor for Orders ON ADMISSION Care 09/26/17 12:29 Active Night Supervisor STAT Care 09/26/17 08:46 Completed Clean Catch Urine Specimen STAT Care 09/26/17 08:46 Completed Code Status Order ROUTINE Care 09/26/17 12:29 Active Consult Telemental Health ROUTINE Care 09/26/17 12:29 Active EKG-ER Only STAT Care 09/26/17 08:46 Completed IV Care Q6H Care 09/26/17 12:29 Active IV Insertion STAT Care 09/26/17 08:46 Completed Neuro Checks Q4H Care 09/26/17 12:29 Active Telemetry Q4H Care 09/26/17 12:29 Active Vital Signs Q2H Care 09/26/17 12:29 Active Delivery Department Supervisor/Discharge Plan ROUTINE Cons 09/26/17 13:01 Active Delivery Department Supervisor/Discharge Plan ROUTINE Cons 09/26/17 13:13 Active Regular Diet Diet 09/26/17 Lunch Active ACETAMINOPHEN Stat Lab 09/26/17 09:20 Completed CBC W DIFF Stat Lab 09/26/17 09:20 Completed CMP Stat Lab 09/26/17 09:20 Completed ETHYL ALCOHOL Stat Lab 09/26/17 09:20 Completed SALICYLATE Stat Lab 09/26/17 09:20 Completed UA W/RFX UR CULTURE Stat Lab 09/26/17 09:15 Completed Urine Triage Profile Stat Lab 09/26/17 09:15 Completed Dextrose 5%-Lr 1000 ml [Dextrose 5%-Lr IV Solution 1000 Med 09/26/17 11:30 Discontinued ML] 1,000 ml IV 100 mls/hr Dextrose 5%-Lr 1000 ml [Dextrose 5%-Lr IV Solution 1000 Med 09/26/17 12:29 Active ML] 1,000 ml IV 100 mls/hr Lorazepam 2 mg/1 ml [Ativan 2 MG/1 ML VIAL] Med 09/26/17 09:26 Discontinued 1 mg IV STAT ONE NaCl 0.9% 1000 ml [Sodium Chloride 0.9% 1000 ML] 1,000 Med 09/26/17 09:31 Discontinued ml .ROUTE UD NaCl 0.9% 1000 ml [Sodium Chloride 0.9% 1000 ML] 1,000 Med 09/26/17 08:46 Discontinued ml IV 999 mls/hr Thiamine HCl 200 mg/2 ml [Thiamine 200 mg/2 ml] Med 09/26/17 08:47 Discontinued 100 mg IM STAT ONE Thiamine HCl 200 mg/2 ml [Thiamine 200 mg/2 ml] Med 09/26/17 10:47 Discontinued 200 mg .ROUTE .STK-MED ONE Ziprasidone Mesylate 20 MG [Geodon 20 MG INJ] Med 09/26/17 08:46 Discontinued 10 mg IM STAT ONE Ziprasidone Mesylate 20 MG [Geodon 20 MG INJ] Med 09/26/17 08:50 Discontinued 20 mg IM .STK-MED ONE Smoking Cessation Education ONCE RT 09/26/17 13:13 Active Transfer Order Routine Transfer 09/26/17 Completed - Vitals & Intake/Output Vital Signs: Vital Signs Temperature 98.4 F 09/26/17 12:42 Pulse Rate 96 H 09/26/17 13:50 Respiratory Rate 16 09/26/17 13:50 Blood Pressure 131/97 09/26/17 13:50 O2 Sat by Pulse Oximetry 95 09/26/17 13:50 Intake & Output: Intake & Output 09/24/17 09/25/17 09/26/17 09/27/17 11:59 11:59 11:59 11:59 Weight 85.6 kg - Lab Result Diagrams: 09/26/17 09:20 09/26/17 09:20 - Procedures and Test Procedures and Tests throughout Hospitalization: Therapy Orders & Screens 09/26/17 13:13 Smoking Cessation Education ONCE Comment: Diagnosis: suicidal ideation Smoking Status: Current every day smoker How long have you smoked: YRS Have you smoked in the past 12 months: Yes Do you dip or chew tobacco: No - Discharge Disposition: Home, Self-Care Condition: Fair Prescriptions: No Action No Home Meds [No Home Meds] 1 darron SAUNDERS UD Follow up with: DOCTOR,NO FAMILY [Primary Care Provider] - 1 Week
[2017-09-26 16:01] VITALS: O2SAT 100
[2017-09-26 19:25] VITALS: PULSE 86
[2017-09-26 19:26] VITALS: BP 145/82
== END 2017-09-26 19:45 ==
LOC: ED 08:37 → ICU 12:21
PROVIDERS: ADMIT General Practice; ATTEND General Practice
DX: F10.129 Alcohol abuse with intoxication, unspecified (principal); F10.921 Alcohol use, unspecified with intoxication delirium; F19.10 Other psychoactive substance abuse, uncomplicated; R45.851 Suicidal ideations; F15.10 Other stimulant abuse, uncomplicated; Z72.0 Tobacco use
CPT/HCPCS: 36000; 36415; 80053; 80307; 81002; 85025; 93005; 93041; 96360; 96361; 96372; 99285; G0378; G0481; J3486

== ENCOUNTER 2020-02-23 18:42 | Emergency (ER) | payer MEDICAID, OTHER ==
[2020-02-23 19:50] LABS: Absolute Neutrophil Ct (ANC) 3.92 (1.4-6.9); BASOPHIL % 0.5 % (0.0-0.4); Basophil (Absolute #) 0.03 (0-0.4); Eosinophil % 2.3 % (0.00-5.0); Eosinophil (Absolute #) 0.14 (0-0.5); Hematocrit 43.7 % (42-50); Hemoglobin 14.5 gm/dl (12.5-18.0); Lymphocyte (Absolute #) 1.63 (1.0-4.6); Lymphocytes % 26.4 % (24.0-44.0); Mean Cell Volume 85.4 fl (78-100); Mean Corpuscular Hemoglobin 28.3 pg (26-32); Mean Corpuscular Hgb Concent. 33.2 g/dl (32-36); Mean Platelet Volume 10.8 fl (7.5-11.0); Monocyte (Absolute #) 0.45 (0.0-1.3); Monocytes % 7.3 % (0.0-12.0); Neutrophil % 63.5 % (36.0-66.0); Platelet Count 199 K/mm3 (150-450); Red Blood Count 5.12 M/mm3 (4.1-5.6); Red Cell Distribution Width 14.9 % (11.5-14.0); White Blood Count 6.2 K/mm3 (4.0-10.5)
--- NOTE | 2020-02-23 19:58 | ERPHSYRPT ---
- History of Present Illness Time Seen by Provider: 02/23/20 18:54 Historian: patient Exam Limitations: no limitations Patient Subjective Stated Complaint: CP Triage Nursing Assessment: pt to ED by EMS c/o CP onset 1700 today. pt was doing dishes when pain started. pt states recent traumatic events happening in life, lost job, past drug user. pt appears anxious, states feeling anxious lately. ekg NSR. heart sounds clear, lung sounds clear and dequal bilaterally. Physician History: 29 years old generally healthy male presented in the ER with chief complaint of substernal chest pain sudden onset when he stood up to go to the kitchen around 5:30 PM today. Describes this as dull aching tightness with some radiation to the neck without any significant aggravating factors and partial relief with aspirin and nitro x1. No shortness of breath. Patient also feels mildly dizzy/lightheaded with chest pain. Denies any history of chest pain in the past. Denies alcohol tobacco or drug use. Pain is 2-3/10 intensity and does not want any pain meds. Denies fever chills cough or shortness of breath. Timing/Duration: today, sudden, improved Activities at Onset: rest Quality: aching, dullness Location: substernal Chest Pain Radiation: neck Severity of Pain-Max: moderate Severity of Pain-Current: mild Modifying Factors: Improves With: nitroglycerin, aspirin Associated Symptoms: denies symptoms Prior Chest Pain/Cardiac Workup: no prior chest pain Nitro Today/Relief: 0.4 mg x 1, provided by EMS Aspirin Treatment Today: 81 mg x 4, provided by EMS Allergies/Adverse Reactions: No Known Drug Allergies Allergy (Verified 09/26/17 12:41) Home Medications: No Home Meds [No Home Meds] 1 darron UD 03/21/17 [History] Hx Tetanus, Diphtheria Vaccination/Date Given: No Hx Influenza Vaccination/Date Given: No Hx Pneumococcal Vaccination/Date Given: No Travel Risk - International Travel Have you traveled outside of the country in past 3 weeks: No - Coronavirus Screening Are you exhibiting any of the following symptoms?: No Close contact with a COVID-19 positive Pt in past 14-21 Days: No - Review of Systems Constitutional: No Symptoms Eyes: No Symptoms Ears, Nose, & Throat: No Symptoms Respiratory: No Symptoms Cardiac: Chest Pain Abdominal/Gastrointestinal: No Symptoms Genitourinary Symptoms: No Symptoms Musculoskeletal: No Symptoms Skin: No Symptoms Neurological: No Symptoms Psychological: No Symptoms Endocrine: No Symptoms Hematologic/Lymphatic: No Symptoms Immunological/Allergic: No Symptoms - Past Medical History Pertinent Past Medical History: Yes Neurological History: No Pertinent History ENT History: No Pertinent History Cardiac History: No Pertinent History Respiratory History: No Pertinent History Endocrine Medical History: No Pertinent History Musculoskeletal History: No Pertinent History GI Medical History: No Pertinent History History: No Pertinent History Psycho-Social History: Anxiety, Depression, Other Male Reproductive Disorders: No Pertinent History Other Medical History: PTSD - Past Surgical History Past Surgical History: No Neuro Surgical History: No Pertinent History Cardiac: No Pertinent History Respiratory: No Pertinent History Gastrointestinal: No Pertinent History Genitourinary: No Pertinent History Musculoskeletal: No Pertinent History Male Surgical History: No Pertinent History Other Surgical History: information recalled from ER. patient too drowsy to answer questions. patient received ativan in ER at 1643 and 1721. - Social History Smoking Status: Former smoker How long have you smoked: YRS Exposure to second hand smoke: Yes Drug Use: none Patient Lives Alone: No - Nursing Vital Signs Nursing Vital Signs: Initial Vital Signs Temperature 98.0 F 02/23/20 18:44 Pulse Rate 72 02/23/20 18:44 Respiratory Rate 20 02/23/20 18:44 Blood Pressure 116/78 02/23/20 18:44 Pain Scale Pain Intensity 4 - Physical Exam General Appearance: no apparent distress Eye Exam: PERRL/EOMI, eyes nml inspection Ears, Nose, Throat Exam: normal ENT inspection, pharynx normal Neck Exam: normal inspection, non-tender, supple, full range of motion Respiratory Exam: normal breath sounds, lungs clear Cardiovascular Exam: regular rate/rhythm, normal heart sounds Gastrointestinal/Abdomen Exam: soft, normal bowel sounds, No tenderness Back Exam: normal inspection Extremity Exam: normal inspection Neurologic Exam: alert, oriented x 3, cooperative Skin Exam: normal color, warm SpO2 Interpretation: normal O2 Delivery: Room Air - Course Nursing assessment & vital signs reviewed: Yes EKG Interpreted by Me: RATE (7), NORMAL AXIS, NORMAL INTERVALS, NORMAL QRS Ordered Tests: Active Orders 24 hr Category Date Time Status CHEST 2 VIEWS (PA AND LAT) Stat Exams 02/23/20 19:16 Taken CBC W DIFF Stat Lab 02/23/20 19:40 Completed CMP Stat Lab 02/23/20 19:40 Completed D-DIMER QUANTITATIVE Stat Lab 02/23/20 19:40 Completed NT PRO BNP Stat Lab 02/23/20 19:40 Completed TROPONIN Q3H Lab 02/23/20 19:40 Completed TROPONIN Q3H Lab 02/23/20 21:50 Completed TROPONIN Q3H Lab 02/24/20 01:30 Ordered TROPONIN Q3H Lab 02/24/20 04:30 Ordered TROPONIN Q3H Lab 02/24/20 07:30 Ordered Medication Summary Discontinued Medications Generic Name Dose Route Start Last Admin Trade Name Freq PRN Reason Stop Dose Admin Ketorolac Tromethamine 30 mg 02/23/20 21:59 02/23/20 22:12 Toradol 30 Mg Injection IV 02/23/20 22:00 30 mg STAT ONE Administration Ketorolac Tromethamine Confirm 02/23/20 22:10 Toradol 30 Mg Injection Administered 02/23/20 22:11 Dose 30 mg .ROUTE .STK-MED ONE Lab/Rad Data: Laboratory Result Diagrams 02/23/20 19:40 02/23/20 19:40 Laboratory Results 02/23/20 02/23/20 02/23/20 Range/Units 21:50 19:40 19:40 WBC (4.0-10.5) K/mm3 RBC (4.1-5.6) M/mm3 Hgb (12.5-18.0) gm/dl Hct (42-50) % MCV (78-100) fl MCH (26-32) pg MCHC (32-36) g/dl RDW (11.5-14.0) % Plt Count (150-450) K/mm3 MPV (7.5-11.0) fl Gran % (36.0-66.0) % Eos # (Auto) (0-0.5) Absolute Lymphs (auto) (1.0-4.6) Absolute Monos (auto) (0.0-1.3) Lymphocytes % (24.0-44.0) % Monocytes % (0.0-12.0) % Eosinophils % (0.00-5.0) % Basophils % (0.0-0.4) % Absolute Granulocytes (1.4-6.9) Basophils # (0-0.4) D-Dimer < 215 L (215-500) ng/mL Sodium (137-145) mmol/L Potassium (3.5-5.1) mmol/L Chloride (98-107) mmol/L Carbon Dioxide (22-30) mmol/L Anion Gap (5-15) MEQ/L BUN (9-20) mg/dL Creatinine (0.66-1.25) mg/dL Estimated GFR ML/MIN Glucose (74-106) mg/dL Calcium (8.4-10.2) mg/dL Total Bilirubin (0.2-1.3) mg/dL AST (17-59) U/L ALT (0-50) U/L Alkaline Phosphatase (38-126) U/L Troponin I < 0.012 < 0.012 (0.000-0.034) ng/mL NT-Pro-B Natriuret Pep (0-450) pg/mL Serum Total Protein (6.3-8.2) g/dL Albumin (3.5-5.0) g/dL 02/23/20 02/23/20 Range/Units 19:40 19:40 WBC 6.2 (4.0-10.5) K/mm3 RBC 5.12 (4.1-5.6) M/mm3 Hgb 14.5 (12.5-18.0) gm/dl Hct 43.7 (42-50) % MCV 85.4 (78-100) fl MCH 28.3 (26-32) pg MCHC 33.2 (32-36) g/dl RDW 14.9 H (11.5-14.0) % Plt Count 199 (150-450) K/mm3 MPV 10.8 (7.5-11.0) fl Gran % 63.5 (36.0-66.0) % Eos # (Auto) 0.14 (0-0.5) Absolute Lymphs (auto) 1.63 (1.0-4.6) Absolute Monos (auto) 0.45 (0.0-1.3) Lymphocytes % 26.4 (24.0-44.0) % Monocytes % 7.3 (0.0-12.0) % Eosinophils % 2.3 (0.00-5.0) % Basophils % 0.5 (0.0-0.4) % Absolute Granulocytes 3.92 (1.4-6.9) Basophils # 0.03 (0-0.4) D-Dimer (215-500) ng/mL Sodium 140 (137-145) mmol/L Potassium 4.0 (3.5-5.1) mmol/L Chloride 106 (98-107) mmol/L Carbon Dioxide 25 (22-30) mmol/L Anion Gap 13.1 (5-15) MEQ/L BUN 15 (9-20) mg/dL Creatinine 0.81 (0.66-1.25) mg/dL Estimated GFR > 60.0 ML/MIN Glucose 92 (74-106) mg/dL Calcium 10.4 H (8.4-10.2) mg/dL Total Bilirubin 0.70 (0.2-1.3) mg/dL AST 24 (17-59) U/L ALT 19 (0-50) U/L Alkaline Phosphatase 52 (38-126) U/L Troponin I (0.000-0.034) ng/mL NT-Pro-B Natriuret Pep 35.7 (0-450) pg/mL Serum Total Protein 8.6 H (6.3-8.2) g/dL Albumin 5.0 (3.5-5.0) g/dL - Progress Progress: improved, re-examined Air Movement: good Progress Note: 02/23/20 22:43 Ruled out acute coronary syndrome, pneumonia, pneumothorax, pulmonary embolism. Low suspicion for dissection. Patient initially did not want anything for pain and later on given Toradol which helped. Is not in any distress. Patient has low heart score, do not think patient needs to be admitted but recommended outpatient follow-up with primary care and cardiology for reevaluation. Discussed signs symptoms of worsening needing return to ER which he seems understanding. Stable for discharge. Blood Culture(s) Obtained: No Antibiotics given: No Counseled pt/family regarding: lab results, diagnosis, need for follow-up, rad results - Departure Departure Disposition: Home Clinical Impression: Atypical chest pain Condition: Stable Critical Care Time: No Referrals: BRIANA TALLEY MD [ACTIVE STAFF] - DOCTOR,NO FAMILY [Primary Care Provider] - (1-2 days for re evaluation) [facility] [ACTIVE STAFF] - (1-2 days for re evaluation) Instructions: Angina (DC), Chest Pain (DC) Additional Instructions: Take Tylenol/ibuprofen as needed. Follow-up with primary care and cardiology for reevaluation. Return to ER for worsening chest pain palpitations or shortness of breath etc.
[2020-02-23 20:26] LABS: ALKALINE PHOSPHATASE 52 U/L (38-126); ANION GAP 13.1 MEQ/L (5-15); BLOOD UREA NITROGEN 15 mg/dL (9-20); CHLORIDE 106 mmol/L (98-107); Calcium 10.4 mg/dL (8.4-10.2); Carbon Dioxide 25 mmol/L (22-30); Creatinine 1 0.81 mg/dL (0.66-1.25); Glucose 92 mg/dL (74-106); NT PRO BNP 35.7 pg/mL (0-450); SGOT/AST 24 U/L (17-59); SGPT/ALT 19 U/L (0-50); SODIUM 140 mmol/L (137-145); Total Protein 8.6 g/dL (6.3-8.2)
[2020-02-23] MEDS ORDERED: TORAdol 30 mg Injection IV ONE (21:59)
[2020-02-23] MEDS ORDERED: TORAdol 30 mg Injection ONE (22:10)
[2020-02-23 22:41] VITALS: BP 140/81; PULSE 90; O2SAT 97
--- NOTE | 2020-02-24 09:38 | XRAY ---
Indication: Chest pain. Comparison: September 15, 2016. PA/lateral chest remains clear again with incidental calcified granulomas. Heart and mediastinal structures are within normal limits. Bony thorax intact with now mild levoscoliosis. Impression: Nonacute chest with chronic features.
== END 2020-02-23 22:43 | disposition home or self-care (01) ==
LOC: ED 18:42
DX: R07.89 Other chest pain (principal)
CPT/HCPCS: 36415; 71046; 80053; 83880; 84484; 85025; 85379; 96374; 99284; J1885